=== PATIENT | female | born 1955 | race Caucasian/White ===

== ENCOUNTER 2024-07-27 04:02 | Inpatient (IN) | payer MEDICARE ==
[2024-07-27] MEDS ORDERED: Acetaminophen 650 MG Suppository PR PRN (05:10)
[2024-07-27] MEDS ORDERED: Ipratropium/Albuterol 3 ML NEB NEB PRN (05:10)
[2024-07-27] MEDS ORDERED: Ondansetron ODT 4 MG TAB PO PRN (05:10)
[2024-07-27] MEDS ORDERED: Ondansetron PF 4 MG/2 ML Vial IVP PRN (05:10)
[2024-07-27 05:19] VITALS: BMI 28.0
[2024-07-27] MEDS: cefTRIAXone\\ROCEPHIN 2 GM in Sodium Chloride 0.9% 100 ML IVPB SCH (06:04)
[2024-07-27] MEDS: Ipratropium/Albuterol 3 ML NEB NEB SCH (07:16)
[2024-07-27] MEDS: methylPREDNISolone Sod Succ/PF 125 MG/2 ML VIAL IVP SCH (08:27)
[2024-07-27] MEDS: Enoxaparin 40 MG (0.4 mL) SYRINGE SC SCH (08:27)
[2024-07-27] MEDS: Azithromycin 500 MG in Sodium Chloride 0.9% 250 ML 250 ML IVPB SCH (09:40)
[2024-07-27] MEDS: guaiFENesin/Codeine 200 mg/20 mg 10 ml Cup PO PRN (14:18)
[2024-07-27] MEDS: Benzonatate 100 MG CAP PO PRN (14:18)
[2024-07-27] MEDS: Pantoprazole DR 40 MG TAB PO SCH (14:18)
[2024-07-27] MEDS: Citalopram 20 MG TAB PO SCH (19:06)
[2024-07-27] MEDS: Budesonide 0.5 MG/2 ML NEB INH SCH (20:22)
[2024-07-27] MEDS: Atorvastatin Calcium 20 MG TAB PO SCH (20:27)
[2024-07-27] MEDS: Acetaminophen 325 MG TAB PO PRN (20:35)
[2024-07-28 05:35] LABS: #Basophils Less than 0.03 10x3/uL (0.0-0.2); #Eosinophils Less than 0.03 10x3/uL (0.0-0.7); %Basophils 0.1 % (0.0-1.0); %Lymphocytes 15.9 % (21.0-51.0); %Monocytes 7.8 % (0.0-10.0); %Neutrophils 75.7 % (42.0-75.0); Hematocrit 32.3 % (36.0-47.0); Hemoglobin 10.5 g/dL (12.0-16.0); Mean Corpuscular HGB CONC 32.5 g/dL (32.0-36.0); Mean Corpuscular Hemoglobin 31.5 pg (27.0-31.0); Platelet Count 239 10x3/uL (130-400); RBC Distribution Width 15.1 % (11.5-14.5); Red Blood Cell (RBC) Count 3.33 mill/uL (4.20-5.40)
[2024-07-28 05:52] LABS: Anion Gap 13 mmol/L (10-20); BUN (Urea Nitrogen) 12 mg/dL (9.8-20.1); Calc. Creatinine Clearance 81 mL/min (70-130); Calcium 9.1 mg/dL (7.8-10.44); Carbon Dioxide 27 mmol/L (23-31); Chloride 99 mmol/L (98-107); Estimated GFR 91; Glucose 103 mg/dL (80-115); Potassium 4.3 mmol/L (3.5-5.1); Sodium 135 mmol/L (136-145)
[2024-07-28] MEDS: Citalopram 20 MG TAB PO SCH (08:05)
[2024-07-28] MEDS: Pantoprazole DR 40 MG TAB PO SCH (08:05)
[2024-07-28] MEDS: methylPREDNISolone Sod Succ 40 MG VIAL IVP SCH (08:07)
[2024-07-29] MEDS: methylPREDNISolone Sod Succ 40 MG VIAL IVP SCH (08:47)
[2024-07-29] MEDS: Guaifenesin DM 100-10/5 ML UDCUP PO SCH (13:44)
[2024-07-29] MEDS: Arformoterol 15 MCG/2 ML NEB NEB SCH (19:15)
[2024-08-01 06:13] LABS: #Basophils Less than 0.03 10x3/uL (0.0-0.2); #Eosinophils Less than 0.03 10x3/uL (0.0-0.7); %Lymphocytes 13.7 % (21.0-51.0); %Monocytes 5.2 % (0.0-10.0); %Neutrophils 80.7 % (42.0-75.0); Hematocrit 39.8 % (36.0-47.0); Hemoglobin 12.9 g/dL (12.0-16.0); Mean Corpuscular HGB CONC 32.4 g/dL (32.0-36.0); Mean Corpuscular Hemoglobin 30.6 pg (27.0-31.0); Mean Corpuscular Volume 94.5 fL (78.0-98.0); Mean Platelet Volume 8.5 fL (7.4-10.4); Platelet Count 297 10x3/uL (130-400); Red Blood Cell (RBC) Count 4.21 mill/uL (4.20-5.40)
[2024-08-01 06:27] LABS: Anion Gap 11 mmol/L (10-20); BUN (Urea Nitrogen) 18 mg/dL (9.8-20.1); Calc. Creatinine Clearance 78 mL/min (70-130); Carbon Dioxide 30 mmol/L (23-31); Chloride 95 mmol/L (98-107); Estimated GFR 87; Glucose 160 mg/dL (80-115); Potassium 4.5 mmol/L (3.5-5.1); Sodium 131 mmol/L (136-145)
[2024-08-01 07:59] VITALS: TEMP 98.1
[2024-08-01 11:57] VITALS: BP 146/68
== END 2024-08-01 12:48 | disposition home or self-care (01) | DRG 193 ==
LOC: T4-B 04:50 → INTOOBSV 04:50 → T4-B 04:59 → OBSVTOIN 07-28 10:03
PROVIDERS: ADMIT Family Medicine; ATTEND Internal Medicine
DX: J18.9 Pneumonia, unspecified organism (principal); J96.01 Acute respiratory failure with hypoxia; J44.1 Chronic obstructive pulmonary disease with (acute) exacerbation; J44.0 Chronic obstructive pulmonary disease with (acute) lower respiratory infection; E87.1 Hypo-osmolality and hyponatremia; D64.9 Anemia, unspecified; F17.210 Nicotine dependence, cigarettes, uncomplicated; E78.5 Hyperlipidemia, unspecified; Z88.8 Allergy status to other drugs, medicaments and biological substances; Z71.6 Tobacco abuse counseling
CPT/HCPCS: 36415; 71045; 80048; 85025; 94640; 96372; 96374; 96375; 96376; G0378; J0456; J0696; J1650; J2919; J7050; J7620; J7626